=== PATIENT | female | born 1960 | race African-American/Black ===

== ENCOUNTER 2016-07-18 10:32 | Emergency (ER) | payer OTHER ==
[~2016-07-18 10:32] MED LIST: Iopamidol 370 76% 100 ML VIAL ONE
[2016-07-18 11:57] LABS: Bilirubin Negative (Negative); Blood, Urine Negative (Negative); Clarity Clear (Clear); Glucose, Urine (Dipstick) Negative (Negative); Leukocyte Negative (Negative); Nitrite Negative (Negative); Protein, Urine (Dipstick) Negative (Neg-Trace); Urobilinogen 0.2 mg/dL (0.2-1.0)
[2016-07-18 12:00] LABS: Specific Gravity, Urine 1.006 (1.002-1.036)
[2016-07-18 12:02] LABS: #Basophils 0.1 thou/uL (0.0-0.2); #Eosinphils 0.3 thou/uL (0.0-0.7); #Lymphocytes 3.2 thou/uL (1.20-3.40); #Monocytes 0.2 thou/uL (0.11-0.59); %Basophils 1.3 % (0.0-1.0); %Lymphocytes 47.8 % (21.0-51.0); %Monocytes 3.1 % (0.0-10.0); %Neutrophils 43.8 % (42.0-75.0); Hemoglobin 14.5 g/dL (12.0-16.0); Mean Corpuscular HGB CONC 33.8 g/dL (32.0-36.0); Mean Corpuscular Hemoglobin 30.7 pg (27.0-31.0); Mean Corpuscular Volume 90.9 fl (81.0-99.0); Mean Platelet Volume 6.9 fL (7.4-10.4); Platelet Count 259 thou/uL (130-400); RBC Distribution Width 13.4 % (11.5-14.5); Red Blood Cell (RBC) Count 4.71 mill/uL (4.20-5.40); White Blood Cell (WBC) Count 6.8 thou/uL (4.8-10.8)
[2016-07-18] MEDS ORDERED: Ondansetron HCl/PF 4 MG/2 ML Vial ONE ×2 (12:03→15:35)
[2016-07-18] MEDS ORDERED: Sodium Chloride 0.9% 1,000 ML ONE (12:03)
[2016-07-18 12:38] LABS: ALT (SGPT) 15 U/L (0-55); AST (SGOT) 12 U/L (5-34); Albumin 3.7 g/dL (3.5-5.0); Alkaline Phosphatase 85 U/L (40-150); Anion Gap 15 mmol/L (10-20); BUN (Urea Nitrogen) 8 mg/dL (9.8-20.1); Bilirubin, Total 0.3 mg/dL (0.2-1.2); Calc. Creatinine Clearance 0 mL/min (70-130); Calcium 9.3 mg/dL (7.8-10.44); Carbon Dioxide 24 mmol/L (22-29); Chloride 107 mmol/L (98-107); Estimated GFR-MDRD 89; Globulin 3.5 g/dL (2.4-3.5); Glucose 102 mg/dL (70-105); Lipase 35 U/L (8-78); Potassium 3.5 mmol/L (3.5-5.1); Protein, Total 7.2 g/dL (6.0-8.3); Sodium 142 mmol/L (136-145)
--- NOTE | 2016-07-18 15:42 | CT ---
CONTRAST ENHANCED ABDOMEN AND PELVIS CT: Date: 07/18/16 COMPARISON: 02/12/15. CLINICAL HISTORY: Abdominal pain, most notable at left lower abdomen. FINDINGS: There is patchy density of the lung bases demonstrating a mosaic attenuation, incompletely assessed. Punctate hypodensity involves the hepatic dome, too small to definitively characterize. No acute ab normality in the liver or spleen. No adrenal mass or peripancreatic inflammation. Kidneys are unrema rkable. Nonspecific borderline sized pancreatic duct noted approximating 3.0 mm in diameter. Gallbla dder is folded with subtle internal increased density, incompletely evaluated by CT imaging. There i s no evidence of bowel obstruction. The colon is diffusely underdistended and partially opacified by contrast. There is mild colonic diverticulosis. No free air. Scattered vascular disease present. No significant ascites. Mild osseous degenerative change. IMPRESSION: 1. There is a borderline sized pancreatic duct. Subtle increased density in the gallbladder lumen p resent, nonspecific. Findings may be further assessed with gallbladder ultrasound. Biliary laborato ry values may also prove useful for further assessment. 2. Additional details are described above. POS: SINTIA
[2016-07-18] MEDS ORDERED: Ciprofloxacin 500 MG TAB ONE (16:13)
[2016-07-18] MEDS ORDERED: metroNIDAZOLE 500 MG TAB ONE (16:13)
== END 2016-07-18 16:17 | disposition home or self-care (01) ==
LOC: NAV ERS 10:32
DX: R10.32 Left lower quadrant pain (principal); M06.9 Rheumatoid arthritis, unspecified; I25.2 Old myocardial infarction; F41.9 Anxiety disorder, unspecified; F32.9 Major depressive disorder, single episode, unspecified; F17.210 Nicotine dependence, cigarettes, uncomplicated; Z86.73 Personal history of transient ischemic attack (TIA), and cerebral infarction without residual deficits; Z79.82 Long term (current) use of aspirin; Z79.899 Other long term (current) drug therapy
CPT/HCPCS: 74177; 80053; 81003; 83690; 85025; 96361; 96374; 96375; 96376; J2270; J2405; J7050

== ENCOUNTER 2016-09-03 21:00 | Emergency (ER) | payer OTHER ==
[2016-09-03] MEDS ORDERED: HYDROcodone/Acetaminophen 5/325 mg Tablet ONE (21:16)
== END 2016-09-03 21:41 | disposition home or self-care (01) ==
LOC: NAV ERS 21:00
DX: H65.91 Unspecified nonsuppurative otitis media, right ear (principal); M06.9 Rheumatoid arthritis, unspecified; I25.2 Old myocardial infarction; E78.00 Pure hypercholesterolemia, unspecified; F32.9 Major depressive disorder, single episode, unspecified; F41.9 Anxiety disorder, unspecified; F17.210 Nicotine dependence, cigarettes, uncomplicated; Z86.73 Personal history of transient ischemic attack (TIA), and cerebral infarction without residual deficits; Z79.82 Long term (current) use of aspirin; Z79.899 Other long term (current) drug therapy
CPT/HCPCS: 99282

== ENCOUNTER 2016-11-06 12:58 | Emergency (ER) | payer OTHER ==
[2016-11-06] MEDS ORDERED: HYDROcodone/Acetaminophen 10/325 mg Tablet ONE (13:22)
--- NOTE | 2016-11-06 14:12 | RAD ---
4 VIEWS LEFT KNEE: Date: 11/06/16 COMPARISON: None. HISTORY: Left knee pain, calf pain, and swelling. FINDINGS: There is mild medial and lateral compartment narrowing. There is mild osteophyte formation involving the medial femoral condyle and medial tibial plateau. There is no displaced fracture or evidence of dislocation. There is no knee joint effusion. There is mild patellofemoral joint space narrowing an d minimal enthesophyte formation at the insertion of the quadriceps tendon. IMPRESSION: Mild degenerative changes. No acute findings. POS: SINTIA
--- NOTE | 2016-11-06 14:54 | ULT ---
LEFT LOWER EXTREMITY VENOUS DUPLEX SONOGRAM: Date: 11/06/16 HISTORY: Left leg pain and edema. FINDINGS: The left common femoral vein and greater saphenous junction were evaluated along with the femoral an d deep femoral, popliteal, and posterior tibial vein. There is good color and spectral Doppler flow, compression, and augmentation. IMPRESSION: No sonographic evidence of deep venous thrombosis within the left lower extremity. POS: SINTIA
== END 2016-11-06 14:43 | disposition home or self-care (01) ==
LOC: NAV ERS 12:58
DX: M25.562 Pain in left knee (principal); I25.2 Old myocardial infarction; I10 Essential (primary) hypertension; E78.00 Pure hypercholesterolemia, unspecified; F32.9 Major depressive disorder, single episode, unspecified; F17.210 Nicotine dependence, cigarettes, uncomplicated; Z86.73 Personal history of transient ischemic attack (TIA), and cerebral infarction without residual deficits; Z79.82 Long term (current) use of aspirin; Z79.899 Other long term (current) drug therapy

== ENCOUNTER 2017-07-08 17:12 | Emergency (ER) | payer OTHER ==
[2017-07-08 17:43] LABS: Bilirubin Negative (Negative); Blood, Urine Trace (Negative); Clarity Clear (Clear); Glucose, Urine (Dipstick) Negative (Negative); Leukocyte Negative (Negative); Nitrite Negative (Negative); Protein, Urine (Dipstick) Negative (Neg-Trace); Specific Gravity, Urine 1.015 (1.005-1.030); Urobilinogen 0.2 mg/dL (0.2-1.0); pH, Urine 5.5 (5.0-9.0)
[2017-07-08 17:52] LABS: Bacteria/HPF Rare-Few HPF (None Seen); RBC/HPF 0-3 HPF (0-3); Squamous Epithelial 0-3 HPF (0-3); WBC/HPF 0-3 HPF (0-3)
[2017-07-08 18:03] LABS: Mean Corpuscular HGB CONC 33.1 g/dL (32.0-36.0); Mean Corpuscular Hemoglobin 29.7 pg (27.0-31.0); Mean Corpuscular Volume 89.8 fl (81.0-99.0); Mean Platelet Volume 11.4 fL (7.4-10.4); Platelet Count 144 thou/uL (130-400); RBC Distribution Width 12.5 % (11.5-14.5); Red Blood Cell (RBC) Count 5.37 mill/uL (4.20-5.40)
[2017-07-08] MEDS ORDERED: Ketorolac Tromethamine 30 MG/ML VIAL ONE (18:29)
[2017-07-08 18:49] LABS: Eosinophils 4 % (0-10); Lymphocytes 58 % (21-51); MDiff Complete? YES; Monocytes 3 % (0-10); Neutrophil 35 % (42-75); PLT Morphology Comment Appears Adequate; RBC Morphology Normal
[2017-07-08 19:06] LABS: ALT (SGPT) 14 U/L (8-55); AST (SGOT) 15 U/L (5-34); Albumin 3.7 g/dL (3.5-5.0); Alkaline Phosphatase 94 U/L (40-150); Anion Gap 16 mmol/L (10-20); BUN (Urea Nitrogen) 14 mg/dL (9.8-20.1); Bilirubin, Total 0.1 mg/dL (0.2-1.2); Calc. Creatinine Clearance 0 mL/min (70-130); Calcium 9.6 mg/dL (7.8-10.44); Carbon Dioxide 24 mmol/L (22-29); Chloride 108 mmol/L (98-107); Estimated GFR-MDRD 84; Globulin 3.4 g/dL (2.4-3.5); Glucose 102 mg/dL (70-105); Lipase 44 U/L (8-78); Potassium 3.8 mmol/L (3.5-5.1); Protein, Total 7.1 g/dL (6.0-8.3); Sodium 144 mmol/L (136-145)
--- NOTE | 2017-07-08 22:25 | CT ---
ABDOMEN AND PELVIC CT SCAN WITH IV CONTRAST: 07/08/17 HISTORY: 56-year-old female with history of left lower quadrant for one week. COMPARISON: 07/18/16. FINDINGS: Nonspecific increased markings in the visualized lower lung zones. Small stable circumscribed hypoden sity in the dome of the right lobe of the liver, too small to characterize but statistically a small cyst. Very small contracted gallbladder. Dilated common bile duct up to 0.9 cm showing little change form the prior study. There is borderline sized pancreatic duct. No intrahepatic ductal dilatation. T he pancreas, spleen, adrenal glands are unremarkable. No renal calculus or acute obstruction. Norm al appearing appendix. Unremarkable uterus and adnexal regions. No abscess, adenopathy, or abnormal f luid collection. IMPRESSION: No significant acute process in the abdomen or pelvis. Dilated common bile duct but showing little ch xiao from prior study. Small contracted gallbladder. No renal calculus or obstruction. No CT evide nce for acute appendicitis. No other significant acute process. POS: SINTIA
== END 2017-07-08 20:21 | disposition home or self-care (01) ==
LOC: NAV ERS 17:12
DX: S30.1XXA Contusion of abdominal wall, initial encounter (principal); I25.2 Old myocardial infarction; F41.9 Anxiety disorder, unspecified; F32.9 Major depressive disorder, single episode, unspecified; F17.210 Nicotine dependence, cigarettes, uncomplicated; Z79.82 Long term (current) use of aspirin; Z86.73 Personal history of transient ischemic attack (TIA), and cerebral infarction without residual deficits; Z79.899 Other long term (current) drug therapy; X50.1XXA Overexertion from prolonged static or awkward postures, initial encounter
CPT/HCPCS: 74177; 80053; 81003; 81015; 83690; 85025; 96374; J1885

== ENCOUNTER 2018-05-28 16:36 | Emergency (ER) | payer OTHER ==
[2018-05-28] MEDS ORDERED: methylPREDNISolone Sod Succ/PF 125 MG/2 ML VIAL ONE (17:34)
== END 2018-05-28 18:05 | disposition home or self-care (01) ==
LOC: NAV ERS 16:36
DX: G89.18 Other acute postprocedural pain (principal); M54.5 Low back pain; E78.5 Hyperlipidemia, unspecified; I10 Essential (primary) hypertension; M06.9 Rheumatoid arthritis, unspecified; F41.9 Anxiety disorder, unspecified; F17.210 Nicotine dependence, cigarettes, uncomplicated; Z71.6 Tobacco abuse counseling; Z86.73 Personal history of transient ischemic attack (TIA), and cerebral infarction without residual deficits; Z79.899 Other long term (current) drug therapy; Z79.82 Long term (current) use of aspirin
CPT/HCPCS: 96372; 99406; J2930